=== PATIENT | female | born 1940 ===

== ENCOUNTER 2020-09-14 15:59 | Outpatient (REF) | payer MEDICARE, SELFPAY ==
--- NOTE | 2020-09-14 16:07 | MHC.AU.ANR ---
Adult Audiological Evaluation Date of Visit: 09/14/20 Reason for Appointment: Audiological evaluation due to concern for decreased hearing. Ms. Capps reports difficulties hearing soft voices and when people are speaking from a distance. She notes that her ears occasionally feel blocked, which she attributes to seasonal allergies. Does patient feel they have a hearing loss?: Yes If Yes, Which Ear?: Both Ears When Was Hearing Difficulty First Noticed?: 2020 Has hearing been tested previously?: No Hearing Handicap Inventory: HHIE SCORE: 18 Based on HHIE score, patient has: Mild to moderate perceived hearing handicap Ear History: Blocked/Full Sensation in Ear(s): On occasion, when experiencing seasonal allergies Medical History: Medical History: High Blood Pressure, Measles, Scarlet Fever Medical History (Other): Hysterectomy 1994 Allergies: Morphine, codeine, Demerol, Tetanus vaccine Medication List: Lisinopril 40 mg, Amlodipine Besylate 5 mg 2x daily, Atenolol 25 mg, Simvastatin 10 mg, Low dose aspirin, D3, Biotin 1000 mg, Latanoprost eye drops Otoscopy: Right Ear: Unremarkable Left Ear: Unremarkable Tympanometry: Tympanometry performed due to: History of allergies/congestion Right Ear: Negative Middle Ear Pressure (Type C) Left Ear: Normal Middle Ear System (Type A) Hearing Evaluation: Transducer(s) Used: Insert Earphones, Bone Conduction Method: Conventional Audiometry Stimuli Used: Pure Tones Right Ear: Description of Hearing: Mild sloping to severe sensorineural hearing loss from 250-8000 Hz. Left Ear: Description of Hearing: Mild sloping to severe sensorineural hearing loss from 250-8000 Hz. Speech Recognition Threshold (SRT): Method Used: Monitored Live Voice Stimuli Used: Spondee Words Right Ear: 35 dBHL Left Ear: 30 dBHL Word Discrimination: Method: Recorded Lists Word Lists Used: NU-6 Right Ear: 92% at 75 dBHL Left Ear: 88% at 70 dBHL Recommendations: Audiological re-evaluation in one year. Trial with amplification is recommended. Discussed hearing aid options with Ms. Capps. She will think over her options and contact her insurance in regards to hearing aid benefits. She was welcomed to return for a hearing aid consultation is she decides should would like to pursue hearing aids through our clinic. Diagnosis: Primary Diagnosis: H90.3 Bilateral Sensorineural Hearing Loss Secondary Diagnosis: H69.91 Unspecified Eustachian Tube Dysfunction, Right Ear Services Performed: Services Performed: Comprehensive Audiological Evaluation (CPT 68951) Tympanometry (CPT 46445) Signature: Provider: Tristen Valdes, CCC-A
== END 2020-09-14 16:00 | disposition home or self-care (01) ==
LOC: HO.SH 15:59
PROVIDERS: Visit Provider Internal Medicine
DX: H90.3 Sensorineural hearing loss, bilateral (principal); H69.91 Unspecified Eustachian tube disorder, right ear
CPT/HCPCS: 92557; 92567